=== PATIENT | male | born 1960 | race Caucasian/White ===

== ENCOUNTER 2017-05-03 17:05 | Emergency (ER) | payer OTHER ==
[2017-05-03 17:12] VITALS: BP 152/97
[2017-05-03] MEDS ORDERED: Ketorolac 30 MG/ML SDV IVPUSH ONE (17:52)
[2017-05-03] MEDS ORDERED: Sodium Chloride 0.9% 10 ML Syringe FLUSH PRN (17:53)
[2017-05-03] MEDS ORDERED: Sodium Chloride 0.9% 500 ML IV SCH (18:00)
--- NOTE | 2017-05-03 18:00 | EDM.PDOC ---
ED HPI GENERAL MEDICAL PROBLEM - General Chief Complaint: Back Pain or Injury Stated Complaint: low back pain Time Seen by Provider: 05/03/17 17:35 - History of Present Illness INITIAL COMMENTS - FREE TEXT/NARRATIVE: The patient presents with complaint of low back pain and burning radicular pain down his left leg to the anterior distal thigh just above the knee. He reports he first had the pain and discomfort in his low back about 1 month ago and pain in his left anterior thigh. He was seen by his PCP SHI Smith and an XR and MRI were done and he was noted to have "bulging disks" but no formal disk herniation at that time. The pain improved for some time but returned a few days ago and is severe currently. He does not recall any specific injury 1 month ago or in the past few days. He states that 90% of the pain is in his left leg and 10% in his back currently which is different than before as he had primarily back pain initially and he states the pain is far more signficant currently as well. He denies saddle anesthesia, impotence, and bowel or bladder incontinence or retention. He denies other symptoms or complaints. Treatments KEY ACCOUNT DIRECTOR: Reports: NSAIDS, Other Medication(s) Lower Back Pain Score (Numeric/FACES): 10 - Related Data Allergies Allergy/AdvReac Type Severity Reaction Status Date / Time No Known Allergies Allergy Verified 05/03/17 17:12 Home Meds: Home Meds Albuterol [Proventil HFA] 2 gm INH Q4HR 04/24/15 [History] Fluticasone/Salmeterol [Advair 250-50 Diskus] 1 puff INH BID 04/24/15 [History] Sildenafil Citrate [Viagra] 25 mg PO ASDIRECTED PRN 04/24/15 [History] Past Medical History Musculoskeletal History: Reports: Back Pain, Chronic Neurological History: Reports: None - Infectious Disease History Infectious Disease History: Reports: Chicken Pox - Past Surgical History Neurological Surgical History: Reports: None Musculoskeletal Surgical History: Reports: Hip Replacement Other Musculoskeletal Surgeries/Procedures:: left hip replacement Social & Family History - Tobacco Use Smoking Status *Q: Never Smoker - Caffeine Use Caffeine Use: Reports: Coffee - Alcohol Use Days Per Week of Alcohol Use: 5 Number of Drinks Per Day: 3 Total Drinks Per Week: 15 - Recreational Drug Use Recreational Drug Use: No Drug Use in Last 12 Months: No ED ROS GENERAL - Review of Systems Review Of Systems: ROS reveals no pertinent complaints other than HPI. ED EXAM,LOWER BACK PAIN/INJURY - Physical Exam Exam: See Below Exam Limited By: No Limitations General Appearance: Alert, WD/WN, No Apparent Distress Eye Exam: Bilateral Eye: EOMI, Normal Inspection, PERRL Ears: Normal External Exam, Normal Canal, Hearing Grossly Normal, Normal TMs Nose: Normal Inspection, Normal Mucosa, No Blood Throat/Mouth: Normal Inspection, Normal Lips, Normal Teeth, Normal Gums, Normal Oropharynx, Normal Voice Head: Atraumatic, Normocephalic Neck: Normal Inspection, Supple, Non-Tender, Full Range of Motion. No: Lymphadenopathy (L), Lymphadenopathy (R), Tender Lateral, Tender Midline Respiratory/Chest: No Respiratory Distress, Lungs Clear, Normal Breath Sounds, No Accessory Muscle Use, Chest Non-Tender Cardiovascular: Normal Peripheral Pulses, Regular Rate, Rhythm, No Edema, No Gallop, No Murmur, No Rub GI/Abdominal: Normal Bowel Sounds, Soft, Non-Tender, No Organomegaly, No Distention Back Exam: Normal Inspection, Full Range of Motion. No: CVA Tenderness (L), CVA Tenderness (R), Paraspinal Tenderness, Vertebral Tenderness Extremities: Normal Range of Motion, Non-Tender, No Pedal Edema, Normal Capillary Refill, Other (No pain on palpation of thoracic or lumbar spinous processes and no palpable step-offs or defects. No pain on palpation of paraspinous musculature of thoracic or lumbar spinous processes. Straight leg raise positive on the left for pain > 50 degrees. Subjective numbness to LT and PP of the anterior and lateral left thigh above the knee. Sensation is normal to distal left leg, foot, and toes. Motor strength of bilateral legs 5/5 throughout. Normal sensation of saddle region when patient palpates. ) Neurological: Alert, Normal Mood/Affect, Normal Dorsiflexion, CN II-XII Intact, Normal Plantar Flexion, Normal Gait, Normal Reflexes, No Motor/Sensory Deficits , Oriented x 3 DTR - Lower Extremities: 2+: Knee (R), Knee (L), Ankle (R), Ankle (L) Psychiatric: Normal Affect, Normal Mood Skin Exam: Warm, Dry, Intact, Normal Color, No Rash Lymphatic: No Adenopathy Course - Vital Signs Last Recorded V/S: Last Vital Signs Temp 35.5 C 05/03/17 17:05 Pulse 60 05/03/17 17:05 Resp 20 05/03/17 17:05 BP 152/97 H 05/03/17 17:05 Pulse Ox 100 05/03/17 17:05 - Orders/Labs/Meds Orders: Active Orders 24 hr Category Date Time Status Peripheral IV Care [RC] . DIRECTED Care 05/03/17 17:53 Active Lumbar Spine 2 or 3V [CR] Stat Exams 05/03/17 17:19 Taken Sodium Chloride 0.9% [Normal Saline] 500 ml Med 05/03/17 18:00 Active IV ASDIRECTED Sodium Chloride 0.9% [Saline Flush] Med 05/03/17 17:53 Active 10 ml FLUSH ASDIRECTED PRN Peripheral IV Insertion Adult [OM.PC] Routine Oth 05/03/17 17:53 Ordered Medication Orders Sodium Chloride (Normal Saline) 500 mls @ 250 mls/hr IV ASDIRECTED KASEY Last Admin: 05/03/17 18:07 Dose: 250 mls/hr Sodium Chloride (Saline Flush) 10 ml FLUSH ASDIRECTED PRN PRN Reason: Keep Vein Open Last Admin: 05/03/17 17:58 Dose: 10 ml Meds: Medications Generic Name Dose Route Start Last Admin Trade Name Freq PRN Reason Stop Dose Admin Sodium Chloride 500 mls @ 250 mls/hr 05/03/17 18:00 05/03/17 18:07 Normal Saline IV 250 mls/hr ASDIRECTED KASEY Administration Sodium Chloride 10 ml 05/03/17 17:53 05/03/17 17:58 Saline Flush FLUSH 10 ml ASDIRECTED PRN Administration Keep Vein Open Discontinued Medications Generic Name Dose Route Start Last Admin Trade Name Freq PRN Reason Stop Dose Admin Diazepam 10 mg 05/03/17 17:53 05/03/17 17:58 Valium IVPUSH 05/03/17 17:54 10 mg ONETIME ONE Administration Ketorolac Tromethamine 30 mg 05/03/17 17:52 05/03/17 17:57 Toradol IVPUSH 05/03/17 17:53 30 mg ONETIME ONE Administration - Radiology Interpretation Free Text/Narrative:: XR of lumbar spine normal. Departure - Departure Time of Disposition: 19:26 Disposition: Home, Self-Care 01 Clinical Impression: Lumbar back pain with radiculopathy affecting left lower extremity, Lumbosacral radiculopathy at L3 - Discharge Information Instructions: Lumbosacral Radiculopathy Referrals: Que Escobedo, RECOVERY AUDITOR [Primary Care Provider] - Forms: ED Department Discharge Additional Instructions: 1. IV inserted in ER. 2. Toradol 30 mg IV. 3. Valium 10 mg IV. 4. Improved pain control. 5. OTC ibuprofen 800 mg every 6 hours for next 1 week, then 400-800 mg every 6 hours PRN pain. 6. Follow up with PCP this week and recommend repeat MRI of lumbar spine if continued pain as symptoms different and more severe than previous and recommend referral to neurosurgery if disk herniation or other pathology explaining pain. 7. Return to ER if increased/refractory/severe pain, new weakness or numbness or tingling, saddle anesthesia, bowel or bladder incontinence or retention, or other emergent concerns. - My Orders Last 24 Hours: My Active Orders 05/03/17 17:19 Lumbar Spine 2 or 3V [CR] Stat 05/03/17 17:53 Peripheral IV Care [RC] . DIRECTED Sodium Chloride 0.9% [Saline Flush] 10 ml FLUSH ASDIRECTED PRN Peripheral IV Insertion Adult [OM.PC] Routine 05/03/17 18:00 Sodium Chloride 0.9% [Normal Saline] 500 ml IV ASDIRECTED - Assessment/Plan Last 24 Hours: My Active Orders 05/03/17 17:19 Lumbar Spine 2 or 3V [CR] Stat 05/03/17 17:53 Peripheral IV Care [RC] . DIRECTED Sodium Chloride 0.9% [Saline Flush] 10 ml FLUSH ASDIRECTED PRN Peripheral IV Insertion Adult [OM.PC] Routine 05/03/17 18:00 Sodium Chloride 0.9% [Normal Saline] 500 ml IV ASDIRECTED Assessment:: L3 Radiculopathy on the left, likely from disk herniation. Plan: 1. IV inserted in ER. 2. Toradol 30 mg IV. 3. Valium 10 mg IV. 4. Improved pain control with above treatment prior to discharge. 5. OTC ibuprofen 800 mg every 6 hours for next 1 week, then 400-800 mg every 6 hours PRN pain. 6. Follow up with PCP this week and recommend repeat MRI of lumbar spine if continued pain as symptoms different and more severe than previous and recommend referral to neurosurgery if disk herniation or other pathology explaining pain. 7. Return to ER if increased/refractory/severe pain, new weakness or numbness or tingling, saddle anesthesia, bowel or bladder incontinence or retention, or other emergent concerns.
[2017-05-03] MEDS ORDERED: Acetaminophen/oxyCODONE 325-5 MG Tab PO ONE (20:20)
== END 2017-05-03 20:30 | disposition home or self-care (01) ==
LOC: LL.ED 17:05
DX: M54.17 Radiculopathy, lumbosacral region (principal)
CPT/HCPCS: 72100; 96361; 96374; 96375; 99283; A9270; J1885; J3360; J7040; J7050

== ENCOUNTER 2022-01-06 08:09 | Emergency (ER) | payer OTHER ==
[2022-01-06 08:25] VITALS: BP 156/89; PULSE 70
[2022-01-06] MEDS: Orphenadrine 60 MG/2 ML Inj IM ONE (09:19)
== END 2022-01-06 09:30 | disposition home or self-care (01) ==
LOC: SUPCPDRO 08:09 → LL.ED 08:09
DX: M54.16 Radiculopathy, lumbar region (principal); Z79.899 Other long term (current) drug therapy
CPT/HCPCS: 96372; 99283; J2360

== ENCOUNTER 2024-09-29 11:09 | Day surgery (SDC) | payer OTHER ==
[~2024-09-29 11:09] MED LIST: Midazolam 1 MG/ML 2 ML SDV ONE; Propofol 200 MG/20 ML SDV ONE
[2024-09-29] MEDS ORDERED: Sodium Chloride 0.9% 10 ML Syringe FLUSH PRN (11:15)
[2024-09-29] MEDS: Lactated Ringers 1,000 ML IV SCH (11:51)
[2024-09-29 13:40] VITALS: BP 130/87; PULSE 81
== END 2024-09-29 14:10 | disposition home or self-care (01) ==
LOC: LL.SDS 11:09
PROVIDERS: ATTEND Surgery
DX: Z12.11 Encounter for screening for malignant neoplasm of colon (principal); K57.30 Diverticulosis of large intestine without perforation or abscess without bleeding; I10 Essential (primary) hypertension; E78.5 Hyperlipidemia, unspecified; Z79.899 Other long term (current) drug therapy
CPT/HCPCS: J2250; J2704; J7120